=== PATIENT | male | born 1935 | race Caucasian/White ===

== ENCOUNTER 2016-10-10 08:24 | Emergency (ER) | payer OTHER ==
[~2016-10-10] VITALS: Ht 175.3 cm; Wt 81.0 kg
[~2016-10-10 08:24] MED LIST: ASPIRIN E.C.81 M1 PO; ASPIRIN325 MG PO; AUGMENTIN875 MG PO; AVELOX400 MG PO; Advil,Nuprin,Motrin PO; Ecotrin PO; FLAGYL500 MG PO; HYDROCHLOROTHIA25 MG PO; LISINOPRIL40 MG PO; METOPROLOL SUCC50 MG PO; PERCOCET 5/31 TABLET PO; PLAVIX75 MG PO; SIMVASTATIN40 MG PO; TOPROL XL100 MG PO; TOPROL XL50 MG PO; Toprol XL PO; Zestril,Prinivil PO; Zocor PO
[2016-10-10 09:52] LABS: HEMATOCRIT 46.1 % (38.0-50.0); MCH 32.9 PG (29.0-34.0); MCHC 35.1 G/DL (30.0-36.0); MCV 93.7 FL (86-99); MEAN PLAT.VOLUME 10.8 uM^3 (9.0-12.4); PLATELET COUNT 131 K/uL (156-360); RBC DIS.WIDTH-CV 12.6 % (11.8-14.6); RBC DIS.WIDTH-SD 42.2 % (39-53); RED BLOOD COUNT 4.92 M/uL (4.00-5.50); WHITE BLOOD COUNT 10.5 K/uL (4.1-10.2)
[2016-10-10 10:06] LABS: CHLORIDE 107 mEq/L (99-109); POTASSIUM 4.7 mEq/L (3.7-5.4); SODIUM 140 mEq/L (136-147)
[2016-10-10 10:07] LABS: GLUCOSE 116 mg/dL (70-99)
[2016-10-10 10:09] LABS: ANION GAP 9 MEQ/L (2-14)
[2016-10-10 10:11] LABS: GFR ESTIMATE (CALCULATED) > 59 mL/min/
[2016-10-10 10:12] LABS: UREA NITROGEN (BUN) 17 mg/dL (9-23)
[2016-10-10 10:20] LABS: TROP-I INTERPRETATION NEGATIVE; TROPONIN-I 0.01 ng/mL (0.0-0.30)
[2016-10-10 11:57] LABS: ADD MIUA? NO; BILIRUBIN NEGATIVE; BLOOD NEGATIVE; COLOR YELLOW ((YELLOW)); GLUCOSE (STRIP) NEGATIVE; KETONES NEGATIVE; LEUKOCYTES NEGATIVE; NITRITE NEGATIVE; PROTEIN (STRIP) NEGATIVE; SPECIFIC GRAVITY 1.015 (1.000-1.030); UCUL ADDED? NO; UROBILINOGEN 0.2 MG/DL (0.2-1.0)
[2016-10-10] MEDS ORDERED: ANTIVERT25 MG PO (12:32)
[2016-10-10 12:50] VITALS: BP 162/78
== END 2016-10-10 12:52 | disposition home or self-care (01) ==
LOC: EME 08:24
PROVIDERS: Emergency Medicine
DX: R42 Dizziness and giddiness (principal); I10 Essential (primary) hypertension; E78.5 Hyperlipidemia, unspecified; Z95.5 Presence of coronary angioplasty implant and graft; Z79.82 Long term (current) use of aspirin; Z88.2 Allergy status to sulfonamides
CPT/HCPCS: 70551; 71010; 80048; 81003; 84484; 85027; 93005; 99281; 99284

== ENCOUNTER 2017-01-16 06:28 | Emergency (ER) | payer OTHER ==
[~2017-01-16] VITALS: Ht 172.7 cm; Wt 82.8 kg
[~2017-01-16 06:28] MED LIST changes: +ANTIVERT25 MG PO
[2017-01-16 07:49] LABS: HEMATOCRIT 44.6 % (38.0-50.0); MCH 32.2 PG (29.0-34.0); MCHC 34.5 G/DL (30.0-36.0); MCV 93.1 FL (86-99); MEAN PLAT.VOLUME 10.9 uM^3 (9.0-12.4); PLATELET COUNT 201 K/uL (156-360); RBC DIS.WIDTH-SD 41.8 % (39-53); RED BLOOD COUNT 4.79 M/uL (4.00-5.50); WHITE BLOOD COUNT 14.7 K/uL (4.1-10.2)
[2017-01-16 08:31] LABS: ANION GAP 13 MEQ/L (2-14); CHLORIDE 101 MEQ/L (99-109); GFR ESTIMATE (CALCULATED) > 59 mL/min/; GLUCOSE 147 mg/dL (70-99); POTASSIUM 3.8 MEQ/L (3.7-5.4); SAMPLE HEMOLYSIS CHECK 0; SAMPLE ICTERIC CHECK 0; SAMPLE LIPEMIA CHECK 0; SODIUM 137 MEQ/L (136-147); UREA NITROGEN (BUN) 15 mg/dL (9-23)
[2017-01-16] MEDS ORDERED: LEVAQUIN500 MG PO (10:21)
[2017-01-16 10:40] VITALS: BP 117/65
== END 2017-01-16 10:41 | disposition home or self-care (01) ==
LOC: EME 06:28
DX: J20.9 Acute bronchitis, unspecified (principal); E78.5 Hyperlipidemia, unspecified; I10 Essential (primary) hypertension; Z87.442 Personal history of urinary calculi; Z86.73 Personal history of transient ischemic attack (TIA), and cerebral infarction without residual deficits; Z95.2 Presence of prosthetic heart valve
CPT/HCPCS: 71020; 80048; 83605; 85027; 87040; 99281; 99284

== ENCOUNTER 2018-01-15 11:55 | Observation (INO) | payer OTHER ==
[~2018-01-15] VITALS: Ht 172.7 cm; Wt 78.1 kg
[~2018-01-15 11:55] MED LIST changes: +ASPIRIN EC325 MG PO; +LEVAQUIN500 MG PO
[2018-01-15 12:24] LABS: BASOPHIL (%) 0.7 % (0-1); BASOPHIL COUNT 0.1 K/uL (0-0.1); EOSINOPHIL COUNT 0.1 K/uL (0-0.3); HEMATOCRIT 45.7 % (38.0-50.0); HEMOGLOBIN 16.2 G/DL (12.5-16.6); IMMATURE GRANULOCYTE (%) 0.3 % (0.0-0.7); LYMPHOCYTE (%) 25.8 % (15-42); LYMPHOCYTE COUNT 2.3 K/uL (1.0-2.8); MCH 32.9 PG (29.0-34.0); MCHC 35.4 G/DL (30.0-36.0); MCV 92.9 FL (86-99); MONOCYTE COUNT 0.7 K/uL (0-0.8); NEUTROPHIL (%) 64.2 % (45-76); NEUTROPHIL COUNT 5.7 K/uL (1.8-6.4); PLATELET COUNT 172 K/uL (156-360); RBC DIS.WIDTH-CV 12.1 % (11.8-14.6); RBC DIS.WIDTH-SD 41.5 % (39-53); RED BLOOD COUNT 4.92 M/uL (4.00-5.50); WHITE BLOOD COUNT 8.9 K/uL (4.1-10.2)
[2018-01-15 12:30] LABS: INTER. NORMALIZED RATIO 1.2
[2018-01-15 12:39] LABS: CHLORIDE 107 mEq/L (99-109); POTASSIUM 4.3 mEq/L (3.7-5.4); SODIUM 140 mEq/L (136-147)
[2018-01-15 12:41] LABS: GLUCOSE 108 mg/dL (70-99)
[2018-01-15 12:45] LABS: CREATININE 1.2 mg/dL (0.6-1.3); GFR ESTIMATE (CALCULATED) > 59 mL/min/ (58.99-99999)
[2018-01-15 12:46] LABS: UREA NITROGEN (BUN) 16 mg/dL (9-23)
[2018-01-15 14:06] LABS: HDL CHOLESTEROL 37 MG/DL (Desirable>=40); LDL CHOLESTEROL 61 mg/dL (Desirable<100); NON-HDL CHOLESTEROL 96 mg/dL (Desirable<160); TOTAL CHOLESTEROL 133 mg/dL (Desirable<200); TRIGLYCERIDES 177 MG/DL (Normal: <150)
[2018-01-15] MEDS ORDERED: NORVASC10 MG PO (14:30)
[2018-01-15 18:14] VITALS: BP 146/80
[2018-01-15 20:00] VITALS: BP 150/65
[2018-01-16 00:45] VITALS: BP 134/66
[2018-01-16 03:57] VITALS: BP 133/66
[2018-01-16 07:31] VITALS: BP 129/71
[2018-01-16 09:32] LABS: HEMOGLOBIN A1c (GLYCOHEMOGLOB) 6.1 % (Below 5.7)
[2018-01-16 11:31] VITALS: BP 123/63
== END 2018-01-16 13:43 | disposition home or self-care (01) ==
LOC: EME 11:55 → EDOF 13:16 → 4SOUTH 13:16 → ENRESERV 13:21 → 4SOUTH 17:23
PROVIDERS: Emergency Medicine; Hospitalist
DX: G45.9 Transient cerebral ischemic attack, unspecified (principal); I10 Essential (primary) hypertension; E78.5 Hyperlipidemia, unspecified; Z86.73 Personal history of transient ischemic attack (TIA), and cerebral infarction without residual deficits; I65.23 Occlusion and stenosis of bilateral carotid arteries; Z95.3 Presence of xenogenic heart valve; I45.10 Unspecified right bundle-branch block; R00.1 Bradycardia, unspecified; Z88.2 Allergy status to sulfonamides; Z79.82 Long term (current) use of aspirin; Z87.442 Personal history of urinary calculi
CPT/HCPCS: 70450; 70551; 71045; 80048; 80061; 83036; 85025; 85610; 93005; 93306; 93880; 99281; 99285; G0378; J1644